=== PATIENT | male | born 1975 | race Caucasian/White ===

== ENCOUNTER → 2021-10-03 | Outpatient (CLI) | payer BC ==
[~2021-10-03] MED LIST: Voltaren100 GM TOP
== END | disposition home or self-care (01) ==
LOC: LAB SHORT 11:15
DX: J02.9 Acute pharyngitis, unspecified (principal)
CPT/HCPCS: 87081

== ENCOUNTER 2024-12-08 11:09 | Day surgery (SDC) | payer OTHER ==
[2024-12-08] VITALS (12 sets, daily range): BP systolic 126–153; BP diastolic 91–101
[~2024-12-08] VITALS: Ht 177.8 cm; Wt 75.7 kg
[~2024-12-08 11:09] MED LIST changes: +ACET325 PO; +CeFAZolin Sodium 2,000 MG in NS 100 ML IV SCH; +IBUP200 PO; +Lactated Ringer's 1,000 ML IV SCH
[2024-12-08] MEDS ORDERED: CeFAZolin Sodium 2,000 MG VIAL ONE (11:18)
[2024-12-08] MEDS ORDERED: Bupivacaine 0.5% HCl 5 MG/ML 30MLVIAL ONE (11:51)
[2024-12-08] MEDS ORDERED: Midazolam HCl 1MG / ML 2ML Vial ONE (12:00)
[2024-12-08] MEDS ORDERED: propofoL 20 ML IV ONE (12:04)
[2024-12-08] MEDS ORDERED: FentaNYL Citrate 50 MCG/ML 2 ML Injection ONE ×2 (12:04→15:01)
[2024-12-08] MEDS ORDERED: Lidocaine HCl 2% 20 ML MDV ONE (12:04)
[2024-12-08] MEDS ORDERED: Rocuronium Bromide 10 MG/ML 5ML Injection IV ONE ×2 (12:04→13:45)
[2024-12-08] MEDS ORDERED: Dexamethasone Sod Phos 10 MG/ML 1ML VIAL ONE (12:04)
[2024-12-08] MEDS ORDERED: Lidocaine HCl 2% Jelly 120MG/6ML SYR (20MG PER ML) ONE (12:04)
[2024-12-08] MEDS ORDERED: Ondansetron HCl 2 MG / ML 2ML Vial ONE (12:04)
--- NOTE | 2024-12-08 12:06 | NUR ---
Ambulatory in Day Surgery. History, Chart, Medications and Allergies reviewed before start of procedure. Patient confirms NPO status and agrees with scheduled surgery. Patient reports completing Chlorhexadine shower X2 prior to admission to hospital. Surgical site prepped with 2% Chlorhexidine cloth wipe. Patient States Post-Procedure ride home has been arranged.
[2024-12-08] MEDS ORDERED: Midazolam HCl 1MG / ML 2ML Vial IV SCH (12:15)
[2024-12-08] MEDS ORDERED: LORazepam 2 MG/ML 1ML Injection IV PRN (12:20)
[2024-12-08] MEDS ORDERED: Prochlorperazine Edisylate 10 mg Vial IV PRN (12:20)
[2024-12-08] MEDS ORDERED: ePHEDrine Sulfate 50 MG/ML 1ML Injection IV PRN (12:20)
[2024-12-08] MEDS ORDERED: Albuterol 2.5 MG/3 ML VIAL INH PRN (12:20)
[2024-12-08] MEDS ORDERED: FentaNYL Citrate 50 MCG/ML 2 ML Injection IV PRN ×2 (12:20→12:25)
[2024-12-08] MEDS ORDERED: Ondansetron HCl 2 MG / ML 2ML Vial IV PRN (12:20)
[2024-12-08] MEDS ORDERED: HYDROmorphone HCl/Pf 1MG SYR IV PRN (12:25)
[2024-12-08] MEDS ORDERED: HYDROmorphone HCl 0.5 MG/0.5 ML SYR IV PRN (12:25)
--- NOTE | 2024-12-08 12:27 | NUR ---
MEDICATED WITH VERSED 2MG BEFORE PROCEDURE AT 1214.
[2024-12-08] MEDS ORDERED: HYDROmorphone HCl 0.5 MG/0.5 ML SYR ONE ×2 (12:41→15:52)
[2024-12-08] MEDS ORDERED: Labetalol HCL 5 MG/ML 4ML Injection (Single Dose) ONE (12:45)
[2024-12-08] MEDS ORDERED: Sugammadex Sodium 200 MG/2ML SDV (100 MG/ML) ONE (14:25)
[2024-12-08] MEDS ORDERED: Ketorolac Tromethamine 30mg Vial ONE (14:25)
[2024-12-08] MEDS ORDERED: LORazepam 2 MG/ML 1ML Injection ONE (15:46)
--- NOTE | 2024-12-08 16:00 | NUR ---
PT SITTING UP IN CART, TEXTING ON CELLPHONE. PT STATES THAT PAIN HAS NOT GOTTEN ANY BETTER AFTER ADMINISTRATION OF 25MCG FENTANYL IV. DILAUDID 0.5MG IV GIVEN. PT ALSO STATES HIS ANXIETY "IS QUITE HIGH" AT THIS TIME. ATIVAN GIVEN ORDERED, SEE MAR. VSS, ON RA, PT HAS GLASSES ON REQUESTING CRANBERRY JUICE & TO GO TO THE BATHROOM. URINAL OFFERED, BUT PT STATES HE'LL WAIT A LITTLE WHILE. PT CONTINUES TO BE ON CELLPHONE, FLACC SCORE 0. NO VISIBLE SIGNS OF DISTRESS NOTED.
[2024-12-08] MEDS ORDERED: OxyCODONE 5 mg/Acetamin 325 mg TABLET PO PRN (16:10)
--- NOTE | 2024-12-08 16:39 | NUR ---
Discharge instructions reviewed with patient. Patient verbalizes understanding. Copy given to patient to take home. Discharged via wheelchair to private car for ride home.
== END 2024-12-08 16:40 | disposition home or self-care (01) ==
LOC: ORSCMMR 11:09 → ORD 12:30 → ORSCMMR 16:40
PROVIDERS: Surgery
PROC: 8E0W4CZ Robotic Assisted Procedure of Trunk Region, Percutaneous Endoscopic Approach (ICD-10-PCS; principal; 2024-12-08 12:30)
PROC: 0YUA4JZ Supplement Bilateral Inguinal Region with Synthetic Substitute, Percutaneous Endoscopic Approach (ICD-10-PCS; principal; 2024-12-08 12:30)
DX: K40.20 Bilateral inguinal hernia, without obstruction or gangrene, not specified as recurrent (principal); K66.0 Peritoneal adhesions (postprocedural) (postinfection); D17.6 Benign lipomatous neoplasm of spermatic cord
CPT/HCPCS: 88304; A9270; C1781; J0690; J1100; J1171; J1885; J2060; J2250; J2405; J2704; J3010; J7120